=== PATIENT | female | born 1935 | race African-American/Black ===

== ENCOUNTER 2018-11-08 18:47 | Emergency (ER) | payer OTHER ==
[~2018-11-08] VITALS: Ht 167.6 cm; Wt 74.5 kg
[~2018-11-08 18:47] MED LIST: ASPI-825 PO; FLUT16H NASAL; HYDR25TA PO; LOSA100T2 PO; LUMIGAN EYE DROPS OU; SIMV40TA5 PO; TIMOLOL EYE DROPS OU
[2018-11-08] MEDS ORDERED: NIFE60TA71 PO (19:08)
[2018-11-08] MEDS ORDERED: OMEP20 PO (19:08)
[2018-11-08 20:10] VITALS: BP 127/74
== END 2018-11-08 20:56 | disposition home or self-care (01) ==
LOC: EMS 18:53
DX: M21.611 Bunion of right foot (principal); I11.9 Hypertensive heart disease without heart failure; E78.00 Pure hypercholesterolemia, unspecified; M19.90 Unspecified osteoarthritis, unspecified site; Z76.0 Encounter for issue of repeat prescription; Z79.899 Other long term (current) drug therapy; Z98.890 Other specified postprocedural states; Z87.891 Personal history of nicotine dependence

== ENCOUNTER 2019-09-26 17:43 | Emergency (ER) | payer OTHER ==
[~2019-09-26] VITALS: Ht 167.6 cm; Wt 70.0 kg
[~2019-09-26 17:43] MED LIST changes: +NIFE-39 PO; +OMEP20 PO; +SIMV-46 PO; -SIMV40TA5 PO
[2019-09-26] MEDS ORDERED: HYDR-1475 PO (17:48)
[2019-09-26] MEDS ORDERED: NIFE-79 PO (17:48)
[2019-09-26 18:51] LABS: BASOPHILS % (AUTO) 0.6 % (0.0-2.0); EOSINOPHILS % (AUTO) 2.3 % (1.0-6.0); HEMATOCRIT 40.6 % (36-46); HEMOGLOBIN 12.9 g/dL (12.0-16.0); LYMPHOCYTES # (AUTO) 2.1 K/uL (1.0-4.8); LYMPHOCYTES % (AUTO) 37.9 % (22.0-44.0); MEAN CORPUSCULAR HEMOGLOBIN 27.8 pg (26.0-34.0); MEAN CORPUSCULAR HGB CONC 31.7 G/dL (31.0-37.0); MEAN CORPUSCULAR VOLUME 88 fL (80-100); MONOCYTES # (AUTO) 0.5 K/uL (0.1-1.0); MONOCYTES % (AUTO) 8.3 % (2.0-9.0); NEUTROPHILS # (AUTO) 2.8 K/uL (1.8-7.7); NEUTROPHILS % (AUTO) 50.9 % (40.0-70.0); PLATELET COUNT (AUTO) 186 K/uL (150-450); RED BLOOD CELL COUNT(AUTO) 4.62 MIL/uL (4.00-5.20); RED CELL DISTRIBUTION WIDTH 14.5 % (11.5-14.5)
[2019-09-26 18:59] LABS: CALCIUM, TOTAL 9.4 mg/dL (8.8-10.5); CREATININE 1.08 mg/dL (0.60-1.30); POTASSIUM 3.2 mmol/L (3.5-5.1)
[2019-09-26 19:05] LABS: ALBUMIN 3.3 g/dL (3.4-5.0); BILIRUBIN,TOTAL 0.4 mg/dL (0.1-1.0); TOTAL PROTEIN, SERUM 7.3 g/dL (6.4-8.2)
[2019-09-26 19:29] VITALS: BP 124/64
== END 2019-09-26 19:38 | disposition home or self-care (01) ==
LOC: EMS 17:43
DX: R60.0 Localized edema (principal); I11.0 Hypertensive heart disease with heart failure; I50.9 Heart failure, unspecified; E78.00 Pure hypercholesterolemia, unspecified; Z87.891 Personal history of nicotine dependence; Z79.82 Long term (current) use of aspirin; Z79.899 Other long term (current) drug therapy
CPT/HCPCS: 85379; 93971; 36415-L1; 36415-TC; 71045-TC